=== PATIENT | male | born 1980 | race Caucasian/White ===

== ENCOUNTER → 2018-04-12 | Outpatient (CLI) | payer OTHER | LOC: M RAD 14:42 | DX: J20.8 Acute bronchitis due to other specified organisms (principal) | CPT/HCPCS: 71046 ==

== ENCOUNTER → 2022-03-18 | Outpatient (CLI) | payer OTHER | LOC: M RAD 07:56 | PROVIDERS: ATTEND Family Medicine | DX: N50.3 Cyst of epididymis (principal); N43.3 Hydrocele, unspecified ==

== ENCOUNTER 2023-12-10 11:31 | Day surgery (SDC) | payer OTHER ==
[~2023-12-10] VITALS: Ht 182.9 cm; Wt 89.4 kg
[~2023-12-10 11:31] MED LIST: CALC500C32 PO; CETI10CH PO; MAGN200T PO; OMEP40CA4 PO; RIBO100T3 PO; VITA100093 PO; [UNRECOGNIZED DRUG - OTHER]; astelin spray; tylenol with codeine PO
[2023-12-10] MEDS: NS 1,000 ML IV ONE (11:44)
[2023-12-10] MEDS ORDERED: propofoL 200 MG/20 ML VIAL As Ordered ONE (13:10)
[2023-12-10] MEDS ORDERED: LIDOCAINE 2% 100MG/5ML SDV (FOR ANES.) As Ordered ONE (13:10)
[2023-12-10 14:05] VITALS: BP 119/73; O2SAT 97
== END 2023-12-10 14:16 | disposition home or self-care (01) ==
LOC: M OPP 11:31
PROVIDERS: ATTEND Surgery
DX: Z12.11 Encounter for screening for malignant neoplasm of colon (principal); D12.5 Benign neoplasm of sigmoid colon; K44.9 Diaphragmatic hernia without obstruction or gangrene; K31.89 Other diseases of stomach and duodenum; K30 Functional dyspepsia; Z79.891 Long term (current) use of opiate analgesic; Z79.899 Other long term (current) drug therapy; Z88.5 Allergy status to narcotic agent

== ENCOUNTER → 2024-02-05 | Outpatient (CLI) | payer OTHER | LOC: M PLARAD 09:23 | PROVIDERS: ATTEND Family Medicine | DX: G43.909 Migraine, unspecified, not intractable, without status migrainosus (principal); H53.8 Other visual disturbances ==